=== PATIENT | female | born 1960 | race Caucasian/White ===

== ENCOUNTER → 2018-04-25 | Outpatient (CLI) | payer OTHER ==
--- NOTE | 2018-04-26 17:51 | MAM ---
EXAM DESCRIPTION: 3D Screening BILATERAL : Digital Mammography. CLINICAL HISTORY: 57 years Female . No complaints. No personal or family history of breast cancer. Childbirth. Postmenopausal 8 years. No HRT history sheet. Lifetime risk of developing breast cancer (Tyrer-Cuzick model)(%): 8.9. COMPARISON: 2-D digital screening bilateral mammography 07/04/2015. No prior reports available. TECHNIQUE: Bilateral CC and MLO projection full-field images, digital tomosynthesis mammographic technique. Bilateral digital 2-D full-field MLO images. CAD not available for tomosynthesis or 2-D images. FINDINGS: The breast parenchymal density pattern is: Heterogeneously dense breast tissue, which may obscure small masses. No skin thickening or nipple retraction. Bilateral axillary lymph nodes. Bilateral solitary microcalcifications. Anterior group of microcalcifications in the retroareolar right breast. Group of microcalcifications near the posterior nipple line 2 cm from the left nipple. No new focal, stellate mass or density, or focal asymmetry bilaterally. IMPRESSION: BI-RADS CATEGORY: 0 - INCOMPLETE- Need additional imaging evaluation. FOLLOW-UP: Recall for additional imaging: Bilateral diagnostic digital spot magnification. Images. Targeted bilateral breast ultrasound if indicated by diagnostic images. Written communication concerning the IMPRESSION and Follow-up, will be mailed to the patient and referring health care provider. Electronically signed by: Baldo Garcia MD 04/26/2018 5:48 PM CDT
== END ==
LOC: MAMMO 11:37
PROVIDERS: ATTEND Family Medicine
DX: Z12.31 Encounter for screening mammogram for malignant neoplasm of breast (principal)

== ENCOUNTER → 2018-05-10 | Outpatient (CLI) | payer OTHER ==
--- NOTE | 2018-05-11 12:26 | US ---
EXAM DESCRIPTION: Breast,Left: Ultrasound CLINICAL HISTORY: 57 yearsFemaleABNORMAL MAMMO. COMPARISON: Bilateral diagnostic breast tomosynthesis with special 2-D views on this visit. I lateral screening digital breast tomosynthesis 04/25/2018. TECHNIQUE: Transcutaneous scanning of the left breast utilizing hopper-scale and Doppler modes. Scanning performed by the embroidery assistant and Dr. Garcia. No targeted ultrasound of the right breast is necessary. FINDINGS: Scanning anterior lower inner quadrant left breast 6:00 to 8:00 sectors. Mixture of fibroglandular fatty echotexture. No large calcifications or dominant soft tissue mass. No distinct cyst or parenchymal edema. No overlying skin changes. No abnormal vascularity. IMPRESSION: 1. Bi-Rads Category 2: Benign. 2. Please refer to bilateral diagnostic breast tomosynthesis with special views, examination and report on this visit. The FINDINGS and the FOLLOW-UP plan were reviewed in person with the patient after the examination. Written communication explaining the IMPRESSION and FOLLOW-UP will be mailed to the patient and referring care provider. Electronically signed by: Baldo Garcia MD 05/11/2018 12:23 PM CDT
--- NOTE | 2018-05-12 14:17 | MAM ---
EXAM DESCRIPTION: Diagnostic Mammo,Bilateral: Digital Mammography CLINICAL HISTORY: 57 yearsFemaleABNORMAL MAMMOGRAM bilateral groups of microcalcifications on screening study. COMPARISON: Bilateral screening digital breast tomosynthesis 04/25/2018. Targeted left breast ultrasound included with this examination.. TECHNIQUE: Bilateral LM projection full-field images, digital mammographic tomosynthesis technique. Bilateral spot magnification images of the retroareolar breast in the CC and MLO projections. CAD not available. FINDINGS: The breast parenchymal density pattern is: Heterogeneously dense breast tissue, which may obscure small masses. No skin thickening or nipple retraction small group of microcalcifications in the anterior lower inner quadrant of the left breast do not appear suspicious. A small calcified nodules in the setting more posterior. Scattered microcalcifications right breast. Ultrasound: Scanning anterior lower inner quadrant left breast 6:00 to 8:00 sectors. Mixture of fibroglandular fatty echotexture. No large calcifications or dominant soft tissue mass. No distinct cyst or parenchymal edema. No overlying skin changes. No abnormal vascularity. IMPRESSION: Benign exam. BIRAD CATEGORY: 2 BENIGN FINDINGS. RECOMMENDATIONS: FOLLOW UP: Routine digital bilateral mammographic screening, one year interval from April 2018. Written communication explaining the IMPRESSION and follow-up, will be mailed to the patient and referring health care provider. According to the [employer], yearly mammograms are recommended starting at age 40 and continuing as long as a woman is in good health. Any breast change noted on a breast self-exam should be reported promptly to the patient's healthcare provider. Breast MRI is recommended for women with an approximately 20-25% or greater lifetime risk of breast cancer, including women with a strong family history of breast or ovarian cancer and women who have been treated for Hodgkin's disease. A negative mammographic report should not delay tissue diagnosis in patients with significant clinical history or physical findings. Extremely dense breast tissue limits the sensitivity of digital mammography. Electronically signed by: Baldo Garcia MD 05/12/2018 2:14 PM CDT
== END ==
LOC: MAMMO 10:30
PROVIDERS: ATTEND Family Medicine
DX: R92.8 Other abnormal and inconclusive findings on diagnostic imaging of breast (principal)